=== PATIENT | male | born 1935 | race Caucasian/White ===

== ENCOUNTER 2021-11-30 12:38 | Observation (INO) | payer MEDICARE, OTHER ==
[~2021-11-30] VITALS: Ht 182.9 cm; Wt 92.2 kg
--- NOTE | 2021-11-30 12:58 | PHYS DOC ---
Past History Past Medical History: A-Fib, CVA, Dementia, High Cholesterol Additional Past Medical Histor: osteoporosis, back pain, compression fx L3-4 (ELDA LINDSEY APRN) Additional Past Surgical Histo: unk (ELDA LINDSEY APRN) Smoking: Non-smoker Alcohol Use: None Drug Use: None (ELDA LINDSEY APRN) General Adult EDM: Chief Complaint: BACK PAIN OR INJURY HPI: HPI: Patient is a 86-year-old male that presents today via [facility] with back pain. Patient resides at [facility], EMS was called by the daughter who states that the patient is complaining of upper left back pain, patient does have a history of dementia and the daughter says that she does not believe the patient has sustained a fall. Patient states that his back hurts he is unable to say how long but daughter states is been approximately 1 week. There is a Lidoderm patch on the left upper back area that was placed by the daughter, no acetaminophen or any other pain medications has been given at this time. Patient is on anticoagulation therapy due to atrial fibrillation. Patient normally uses a wheelchair to get around, he does not ambulate on a regular basis. (ELDA LINDSEY APRN) Review of Systems: Review of Systems: Constitutional: Denies fever or chills Eyes: Denies change in visual acuity HENT: Denies nasal congestion or sore throat Respiratory: Denies cough or shortness of breath Cardiovascular: Denies chest pain or edema GI: Denies abdominal pain, nausea, vomiting, bloody stools or diarrhea : Denies dysuria Musculoskeletal: Back pain Integument: Denies rash Neurologic: Denies headache, focal weakness or sensory changes Endocrine: Denies polyuria or polydipsia Lymphatic: Denies swollen glands Psychiatric: Denies depression or anxiety (ELDA LINDSEY APRN) Allergies: Allergies: Allergies Coded Allergies Type Severity Reaction Last Updated Verified No Known Drug Allergies 11/30/21 No (ELDA LINDSEY APRN) Physical Exam: PE: Constitutional: Well developed, well nourished, no acute distress, non-toxic appearance. [] HENT: Normocephalic, atraumatic, bilateral external ears normal, oropharynx moist, no oral exudates, nose normal. [] Eyes: PERRLA, EOMI, conjunctiva normal, no discharge. [] Neck: Normal range of motion, no tenderness, supple, no stridor. [] Cardiovascular:Heart rate regular rhythm, no murmur [] Lungs & Thorax: Bilateral breath sounds clear to auscultation, no increased work of breathing noted Abdomen: Bowel sounds normal, soft, no tenderness, no masses, no pulsatile masses. [] Skin: Healing ecchymotic area noted over the left flank area near the iliac crest, no crepitus noted with palpation Back: Palpation of the chest notes upper left back area is painful, also patient has low back pain along the SI joints with palpation, Extremities: No tenderness, no cyanosis, no clubbing, ROM intact, neurovascular is intact distal to the injury, pedal pulse is 2+ Neurologic: Alert and oriented X 1, which is his normal mental status Psychologic: Affect normal, judgement abnormal, mood normal. [] (ELDA LINDSEY APRN) Current Patient Data: Labs: Laboratory Tests Test 11/30/21 13:01 11/30/21 13:35 White Blood Count 6.1 x10^3/uL Red Blood Count 4.04 x10^6/uL Hemoglobin 12.4 g/dL Hematocrit 37.3 % Mean Corpuscular Volume 92 fL Mean Corpuscular Hemoglobin 31 pg Mean Corpuscular Hemoglobin Concent 33 g/dL Red Cell Distribution Width 14.9 % Platelet Count 121 x10^3/uL Neutrophils (%) (Auto) 56 % Lymphocytes (%) (Auto) 31 % Monocytes (%) (Auto) 10 % Eosinophils (%) (Auto) 2 % Basophils (%) (Auto) 0 % Neutrophils # (Auto) 3.4 x10^3uL Lymphocytes # (Auto) 1.9 x10^3/uL Monocytes # (Auto) 0.6 x10^3/uL Eosinophils # (Auto) 0.1 x10^3/uL Basophils # (Auto) 0.0 x10^3/uL Sodium Level 139 mmol/L Potassium Level 4.0 mmol/L Chloride Level 105 mmol/L Carbon Dioxide Level 27 mmol/L Anion Gap 7 Blood Urea Nitrogen 13 mg/dL Creatinine 0.7 mg/dL Estimated GFR (Cockcroft-Gault) 106.7 BUN/Creatinine Ratio 19 Glucose Level 103 mg/dL Calcium Level 8.2 mg/dL Total Bilirubin 1.7 mg/dL Aspartate Amino Transf (AST/SGOT) 20 U/L Alanine Aminotransferase (ALT/SGPT) 21 U/L Alkaline Phosphatase 104 U/L Troponin I High Sensitivity 12 ng/L Total Protein 6.5 g/dL Albumin 2.9 g/dL Albumin/Globulin Ratio 0.8 Urine Collection Type Clean catch Urine Color Yellow Urine Clarity Clear Urine pH 7.0 Urine Specific Bethany 1.020 Urine Protein Neg Urine Glucose (UA) Neg mg/dL Urine Ketones (Stick) Neg mg/dL Urine Blood Trace Urine Nitrite Neg Urine Bilirubin Neg Urine Urobilinogen Dipstick 1.0 mg/dL Urine Leukocyte Esterase Neg Urine RBC Occ /HPF Urine WBC 0 /HPF Urine Squamous Epithelial Cells None /LPF Urine Bacteria 0 /HPF Current Medications Medications (Trade) Dose Ordered Sig/Ricardo Route PRN Reason Start Time Stop Time Status Last Admin Dose Admin Iohexol (Omnipaque 300 Mg/ml) 75 ml 1X ONCE IV 11/30/21 13:00 11/30/21 13:01 DC 11/30/21 13:00 Info (Do NOT chart on this entry -- for MONITORING) 1 each PRN DAILY PRN MC SEE COMMENTS 11/30/21 13:00 12/02/21 12:59 Vital Signs: Vital Signs Date Time Temp Pulse Resp B/P (MAP) Pulse Ox O2 Delivery O2 Flow Rate FiO2 11/30/21 16:40 58 16 136/68 (90) 97 Room Air 11/30/21 16:18 57 16 150/81 (104) 98 Room Air 11/30/21 15:18 56 18 139/71 (93) 97 Room Air 11/30/21 14:18 54 18 133/63 (86) 96 Room Air 11/30/21 13:48 56 16 141/70 (93) 97 Room Air 11/30/21 13:16 60 18 133/67 (89) 98 Room Air 11/30/21 12:40 98.0 57 18 138/64 (88) 95 Room Air Vital Signs Date Time Temp Pulse Resp B/P (MAP) Pulse Ox O2 Delivery O2 Flow Rate FiO2 11/30/21 12:40 98.0 57 18 138/64 (88) 95 Room Air (ELDA LINDSEY APRN) EKG: EKG: EKG done at [address] Macedo at 1312 atrial fib at a rate of 52 no ectopy QTc is 428 ms no STEMI [] (ELDA LINDSEY APRN) Radiology/Procedures: Radiology/Procedures: REASON: back pain with possible fall recently, unwitnessed PROCEDURE: CT CHEST ABD PELVIS W/CONTRAST Study: CT chest, abdomen and pelvis with contrast INDICATION: Back pain. Possible recent unwitnessed fall. COMPARISON: None. TECHNIQUE: Helical CT imaging performed of the chest, abdomen and pelvis after the intravenous administration of 75 cc Omnipaque 300. Coronal and sagittal reformats were obtained. One or more of the following individualized dose reduction techniques were utilized for this examination: 1. Automated exposure control 2. Adjustment of the mA and/or kV according to patient size 3. Use of iterative reconstruction technique. FINDINGS: CT Chest: There is multifocal calcified and noncalcified atheromatous plaque to include trivessel coronary artery involvement. Aortic valve and annular mineralization. Mitral annular mineralization. Enlargement of the heart. No dissection or aneurysm of the thoracic aorta which is mildly tortuous. Mild left subclavian artery stenosis. Mild dilatation of the main pulmonary artery. Heterogeneous left thyroid nodule with small calcifications. The nodule measures up to 2.2 cm. Adjacent smaller nodule measures under a centimeter or. Better no axillary adenopathy. Several mildly prominent mediastinal and hilar lymph nodes. No pericardial effusion. Unremarkable esophagus. Small right larger than left pleural effusions. No pneumothorax. Atelectasis and interstitial edema. Left apical nodule on image 18 series 4 measuring 4 mm. Right lower lobe nodule medially on image 57 series 4 measuring 8 mm. Close evaluation of the lungs is hindered by respiratory motion. No significant nodule seen elsewhere. Scattered granulomas. No large body wall hematoma. Osteopenia no displaced rib fracture. Multilevel spondylosis. Ventral wedging at T2. Superior endplate height loss at T4. Diffuse idiopathic skeletal hyperostosis. No apparent fracture through bridging osteophyte. CT Abdomen/Pelvis: Undulating hepatic margins could indicate a degree of cirrhosis region of increased density along the inner margin of the right hepatic lobe on image 24 series 5 adjacent to the adrenal gland but this does not appear to represent a nodule/mass. Layering gallstones/sludge. No findings of acute cholecystitis. Nondilated biliary tree. Unremarkable pancreas and spleen. Calcification associated with the right adrenal gland. Unremarkable left adrenal gland. Bilateral renal cystic foci noting that some are too small to characterize. No hydronephrosis. Circumferential wall thickening of the urinary bladder in the setting of prostatomegaly. The prostate is measured at 5 cm transverse. Query chronic bladder outlet obstruction. Constipated state with rectal distention with well-formed stool. Tortuous colon. Mobile cecum. No pathologic dilatation of small bowel. No appreciable abnormality of the gastric wall. Multifocal calcified and noncalcified atheromatous plaque. Aortobiiliac tortuosity. No significant lymph node enlargement. No free fluid or pneumoperitoneum. Scattered muscular fatty infiltration. No large body wall hematoma. No displaced fracture throughout the pelvis. Augmented L3 and L4 compression deformities. Subtle acute fracture at the superior/right lateral aspect of L5, image 62 series 8. Intact posterior elements IMPRESSION: CT Chest: 1. No sequela of acute trauma seen throughout the chest. Taking into consideration osteopenia no acute fracture is seen to involve the thoracic spine, lower cervical spine or ribs. 2. Enlarged heart and findings of congestive heart failure/volume overload with interstitial edema and small right larger than left pleural effusions. 3. Right lower lobe pulmonary nodule measuring 8mm. No comparison studies are available to determine stability. Per Fleischner guidelines, follow-up is recommended in 6-12 months unless outside imaging can be obtained to confirm stability. 4. Prominent left thyroid lobe nodule with small calcifications measuring up to 2.2 cm. This would meet size criteria for eventual outpatient/nonemergent thyroid ultrasound if deemed clinically necessary given patient age. 5. Multiple chronic observations to include calcific coronary artery disease. CT Abdomen/Pelvis: 1. Very subtle fracture at the superior/right lateral aspect of the L5 vertebral body. No additional fracture is identified. No sequela trauma within the abdomen or pelvis. 2. Multiple chronic findings outlined in the body of the report. Constipated state with rectal distention with well-formed stool. Electronically signed by: MIO TREJO MD (11/30/2021 2:25 PM) [id number] DICTATED AND SIGNED BY: MIO TREJO MD DATE: 11/30/21 1408 CC: ELDA LINDSEY APRN; SHEEBA REGALADO MD ~MTH0 0[] (ELDA LINDSEY APRN) Heart Score: C/O Chest Pain: N/A Risk Factors: Risk Factors: DM, Current or recent (<one month) smoker, HTN, HLP, family history of CAD, obesity. Risk Scores: Score 0 - 3: 2.5% MACE over next 6 weeks - Discharge Home Score 4 - 6: 20.3% MACE over next 6 weeks - Admit for Clinical Observation Score 7 - 10: 72.7% MACE over next 6 weeks - Early Invasive Strategies (ELDA LINDSEY APRN) Course & Med Decision Making: Course & Med Decision Making Pertinent Labs and Imaging studies reviewed. (See chart for details) 1445 spoke to daughter who is at bedside she states that the patient was moved here in May 2021 from [place], him and his has been residing at living [facility] and caring for themselves. Daughter states patient prior to Thursday of this week was able to get around in his apartment area with his wheelchair, and do simple transfers such as to the toilet and to the bed into his chair, but since Thursday he has been able to do so just due to the left scapular pain that he has been experiencing. I did review radiological and laboratory results with patient, after speaking with daughter our main concern is how patient will care for himself in the assisted living facility since there is not help to help with ADLs. I did speak to Dr. Lua and he is agreeable to admitting the patient for observation so that the patient can be evaluated for possible usp facility. (ELDA LINDSEY APRN) Dragon Disclaimer: Dragon Disclaimer: This electronic medical record was generated, in whole or in part, using a voice recognition dictation system. (ELDA LINDSEY APRN) Attending Co-Sign The patient was seen and interviewed as well as examined at the bedside. The chart was reviewed. The case was discussed. Agree with the plan of care. (ANTHONY MACEDO DO) Departure Departure: Impression: Primary Impression: Back pain Qualified Codes: M54.89 - Other dorsalgia Additional Impressions: Failure to thrive in adult Atrial fibrillation Qualified Codes: I48.20 - Chronic atrial fibrillation, unspecified Anticoagulant long-term use History of stroke with residual effects Disposition: ADMITTED INPATIENT Admitting Physician: Ian Lua (ELDA LINDSEY APRN) Condition: STABLE Referrals: SHEEBA REGALADO MD (PCP) ELDA LINDSEY APRN Nov 30, 2021 12:58 ANTHONY MACEDO DO Dec 02, 2021 10:52
[2021-11-30] MEDS ORDERED: IOHEXOL 300 MG/ML 75 ML VIAL. IV ONE (13:00)
[2021-11-30] MEDS ORDERED: CONTRAST GIVEN. MC PRN (13:00)
[2021-11-30 13:16] LABS: BASO % 0 % (0-3); EOS # 0.1 x10^3/uL (0.0-0.7); EOS % 2 % (0-3); HEMATOCRIT 37.3 % (39.0-53.0); HEMOGLOBIN 12.4 g/dL (13.0-17.5); LYMPH # 1.9 x10^3/uL (1.0-4.8); LYMPH % 31 % (24-48); MEAN CORPUSCULAR HEMOGLOBIN 31 pg (25-35); MEAN CORPUSCULAR HGB CONC 33 g/dL (31-37); MEAN CORPUSCULAR VOLUME 92 fL (79-100); MONO # 0.6 x10^3/uL (0.0-1.1); MONO % 10 % (0-9); NEUT # 3.4 x10^3uL (1.8-7.7); NEUT % 56 % (31-73); PLATELET COUNT 121 x10^3/uL (140-400); RED BLOOD COUNT 4.04 x10^6/uL (4.30-5.70); RED CELL DISTRIBUTION WIDTH 14.9 % (11.5-14.5); WHITE BLOOD COUNT 6.1 x10^3/uL (4.0-11.0)
[2021-11-30 13:28] LABS: ALBUMIN 2.9 g/dL (3.4-5.0); ALBUMIN/GLOBULIN RATIO 0.8 (1.0-1.7); CREATININE 0.7 mg/dL (0.7-1.3); GFR 106.7; TOTAL BILIRUBIN 1.7 mg/dL (0.2-1.0); TOTAL PROTEIN 6.5 g/dL (6.4-8.2)
[2021-11-30 13:29] LABS: CALCIUM 8.2 mg/dL (8.5-10.1)
--- NOTE | 2021-11-30 13:32 | EKG ---
[address] [address] Test Date: 2021-11-30 Test Time: 13:17:41 Pat Name: MEYL FREEMAN Department: Room: Gender: M Race Starter: YINA : 1935 Requested By: ELDA LINDSEY Order Number: [id number] Reading MD: Nagi Rojas MD Measurements Intervals Midway Rate: 56 P: MI: QRS: 32 QRSD: 88 T: -2 QT: 460 QTc: 447 Interpretive Statements ATRIAL FIBRILLATION NON-SPECIFIC ST/T CHANGES Electronically Signed On 12-02-2021 10:14:29 SPEEDER HAND by Nagi Rojas MD
[2021-11-30 14:27] LABS: BACTERIA,URINE 0 /HPF (0-FEW); CLARITY,URINE CLEAR; COLOR,URINE YELLOW; GLUCOSE,URINE NEG (NEG); NITRITE,URINE NEG (NEG); RBC,URINE OCC /HPF (0-2); WBC,URINE 0 /HPF (0-4)
--- NOTE | 2021-11-30 14:27 | RAD ---
Study: CT chest, abdomen and pelvis with contrast INDICATION: Back pain. Possible recent unwitnessed fall. COMPARISON: None. TECHNIQUE: Helical CT imaging performed of the chest, abdomen and pelvis after the intravenous admini stration of 75 cc Omnipaque 300. Coronal and sagittal reformats were obtained. One or more of the following individualized dose reduction techniques were utilized for this examinat ion: 1. Automated exposure control 2. Adjustment of the mA and/or kV according to patient size 3. Use of iterative reconstruction technique. FINDINGS: CT Chest: There is multifocal calcified and noncalcified atheromatous plaque to include trivessel coronary blu ry involvement. Aortic valve and annular mineralization. Mitral annular mineralization. Enlargement o f the heart. No dissection or aneurysm of the thoracic aorta which is mildly tortuous. Mild left subc lavian artery stenosis. Mild dilatation of the main pulmonary artery. Heterogeneous left thyroid nodule with small calcifications. The nodule measures up to 2.2 cm. Adjace nt smaller nodule measures under a centimeter or. Better no axillary adenopathy. Several mildly promi nent mediastinal and hilar lymph nodes. No pericardial effusion. Unremarkable esophagus. Small right larger than left pleural effusions. No pneumothorax. Atelectasis and interstitial edema. Left apical nodule on image 18 series 4 measuring 4 mm. Right lower lobe nodule medially on image 57 series 4 measuring 8 mm. Close evaluation of the lungs is hindered by respiratory motion. No signific ant nodule seen elsewhere. Scattered granulomas. No large body wall hematoma. Osteopenia no displaced rib fracture. Multilevel spondylosis. Ventral we dging at T2. Superior endplate height loss at T4. Diffuse idiopathic skeletal hyperostosis. No appare nt fracture through bridging osteophyte. CT Abdomen/Pelvis: Undulating hepatic margins could indicate a degree of cirrhosis region of increased density along the inner margin of the right hepatic lobe on image 24 series 5 adjacent to the adrenal gland but this d oes not appear to represent a nodule/mass. Layering gallstones/sludge. No findings of acute cholecyst itis. Nondilated biliary tree. Unremarkable pancreas and spleen. Calcification associated with the ri ght adrenal gland. Unremarkable left adrenal gland. Bilateral renal cystic foci noting that some are too small to characterize. No hydronephrosis. Circumferential wall thickening of the urinary bladder in the setting of prostatomegaly. The prostate is measured at 5 cm transverse. Query chronic bladder outlet obstruction. Constipated state with rectal distention with well-formed stool. Tortuous colon. Mobile cecum. No pat hologic dilatation of small bowel. No appreciable abnormality of the gastric wall. Multifocal calcified and noncalcified atheromatous plaque. Aortobiiliac tortuosity. No significant ly mph node enlargement. No free fluid or pneumoperitoneum. Scattered muscular fatty infiltration. No large body wall hematoma. No displaced fracture throughout the pelvis. Augmented L3 and L4 compression deformities. Subtle acut e fracture at the superior/right lateral aspect of L5, image 62 series 8. Intact posterior elements IMPRESSION: CT Chest: 1. No sequela of acute trauma seen throughout the chest. Taking into consideration osteopenia no acu te fracture is seen to involve the thoracic spine, lower cervical spine or ribs. 2. Enlarged heart and findings of congestive heart failure/volume overload with interstitial edema a nd small right larger than left pleural effusions. 3. Right lower lobe pulmonary nodule measuring 8mm. No comparison studies are available to determine stability. Per Fleischner guidelines, follow-up is recommended in 6-12 months unless outside imaging can be obtained to confirm stability. 4. Prominent left thyroid lobe nodule with small calcifications measuring up to 2.2 cm. This would m eet size criteria for eventual outpatient/nonemergent thyroid ultrasound if deemed clinically necessa ry given patient age. 5. Multiple chronic observations to include calcific coronary artery disease. CT Abdomen/Pelvis: 1. Very subtle fracture at the superior/right lateral aspect of the L5 vertebral body. No additional fracture is identified. No sequela trauma within the abdomen or pelvis. 2. Multiple chronic findings outlined in the body of the report. Constipated state with rectal diste ntion with well-formed stool. Electronically signed by: MIO TREJO MD (11/30/2021 2:25 PM) [id number]
[2021-11-30] MEDS ORDERED: ACETAMINOPHEN 500 MG TABLET PO PRN (15:15)
[2021-11-30] MEDS ORDERED: CYCLOBENZAPRINE 10 MG TABLET. PO ONE (15:30)
[2021-11-30 17:30] VITALS: BP 150/79
[2021-11-30] MEDS ORDERED: KETOROLAC 30 MG/ML VIAL. IM ONE (17:30)
--- NOTE | 2021-11-30 19:24 | NUR ---
PT ARRIVED TO THE UNIT AT APPROX 173 VIA GURNEY FROM EMS. PT SITUATED IN ROOM AND DR CAR NOTIFIED OF PTS ARRIVAL WELL SEVERE PAIN. ORDER RECEIVED. SPOKE TO THE PTS DAUGHTER/DPOA AND OBTAINED HISTORY FROM THE DAUGHTER MAINLY. PT FROM [facility] WHERE HE CURRENTLY RESIDES WITH HIS .
[2021-11-30] MEDS ORDERED: MAGN400O7 PO (19:41)
[2021-11-30] MEDS ORDERED: ACET325T21 PO (19:41)
[2021-11-30] MEDS ORDERED: ATOR40TA59 PO (19:41)
[2021-11-30] MEDS ORDERED: UBID100C26 PO (19:41)
[2021-11-30] MEDS ORDERED: MULT-245 PO (19:41)
[2021-11-30] MEDS ORDERED: CALA180L4 TP (19:41)
[2021-11-30] MEDS ORDERED: TAMS0.4C97 PO (19:41)
[2021-11-30] MEDS ORDERED: POTA10TA12 PO (19:41)
[2021-11-30] MEDS ORDERED: SENN1TAB62 PO (19:41)
[2021-11-30] MEDS ORDERED: APIX2.5T PO (19:41)
[2021-11-30] MEDS ORDERED: ALEN70TA3 PO (19:41)
[2021-11-30] MEDS ORDERED: FURO-68 PO (19:41)
[2021-11-30] MEDS ORDERED: TAMSULOSIN 0.4 MG CAP.ER.24H. PO SCH (21:30)
[2021-11-30] MEDS ORDERED: MAGNESIUM HYDROXIDE 2,400 MG/30 ML ORAL.SUSP. PO PRN (21:30)
[2021-11-30] MEDS ORDERED: ATORVASTATIN CALCIUM 20 MG TABLET PO SCH (21:30)
[2021-12-01 00:12] VITALS: BP 147/80
[2021-12-01 05:25] VITALS: BP 139/78
--- NOTE | 2021-12-01 06:15 | NUR ---
Pt awake in bed eating dinner with daughter at bedside at change of shift. Pt is A&Ox2-3, hx of dementia. Pt is very pleasant with assessment and cares. Dr Lua called for admit orders and restart of home medications. Pt took HS medications whole without difficulty. Pt incont of urine x1, Calmoseptine applied. Pt TQ2 with pillow. Pt slept great during the night. Denies pain unless he moves. Bed alarm on.
[2021-12-01] MEDS ORDERED: POTASSIUM CHLORIDE 10 MEQ TABLET.ER. PO SCH (08:00)
[2021-12-01] MEDS ORDERED: FUROSEMIDE 40 MG TABLET PO SCH (09:00)
[2021-12-01] MEDS ORDERED: MULTIVITAMIN with MINERAL TABLET. PO SCH (09:00)
--- NOTE | 2021-12-01 09:27 | HP ---
DATE OF SERVICE: 12/01/2021 ADMIT DATE: 11/30/2021 ATTENDING PHYSICIAN: Dr. Lua. CHIEF COMPLAINT: Back pain. HISTORY OF PRESENT ILLNESS: The patient is an 86-year-old gentleman, recently moved here in the last year from [place]. His youngest daughter lives here in town. He and his are living at [facility]. He had fallen recently. The main complaint is severe low back pain. He is unable to get up. He has profound dementia and does not remember what happened. He was admitted, given pain meds and bed rest. By the time I saw him the next morning, he was doing better. He was back to his baseline. He had a Lidoderm patch. X-rays showed a very slight mild compression fracture. It is not surgical. He is on chronic anticoagulation due to atrial fibrillation. 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 ALLERGIES: He has no known drug allergies. CURRENT MEDICATIONS: Include the following: He was on scheduled Eliquis, Lipitor, furosemide, potassium, Flomax, senna, CoQ10, and Fosamax. SOCIAL HISTORY: Nonsmoker, nondrinker. FAMILY HISTORY: Unobtainable. REVIEW OF SYSTEMS: He is confused and otherwise unobtainable. PHYSICAL EXAMINATION: GENERAL: When I saw him, this is a pleasant elderly gentleman. VITAL SIGNS: Initial vital signs showed a blood pressure of 139/78, pulse is 60 and regular. He was afebrile, oxygen saturation 93% on room air. HEENT: Head is without trauma. Pupils are reactive. Sclerae nonicteric. The oropharynx is clear. NECK: Supple, no bruits. LUNGS: Clear. CARDIOVASCULAR: Regular heart tones. ABDOMEN: Soft. EXTREMITIES: Without edema. NEUROLOGIC: Pleasantly confused. PERTINENT LABORATORY STUDIES: Hemoglobin is 12.4 g, white count 6100. Electrolytes within normal range. Nonfasting blood sugar 103. CT chest, abdomen and pelvis showed various nonclinical abnormality. He has a slight compression fracture that is evident that is acute. ASSESSMENT: 1. An 86-year-old gentleman with acute fall and slight compression fracture. 2. Acute lumbar strain. 3. Severe incapacitating pain. 4. Underlying dementia. 5. Hyperlipidemia. PLAN: 1. Observation status. 2. Pain control. 3. Bed rest. 4. Diet as tolerated. 5. Continue home meds. NEO DR: Mickie TID: [id number]
--- NOTE | 2021-12-01 10:06 | NUR ---
Pt up this morning at bedside eating with min assist. pt denies pain at this time.Dr Lua spoke to the drt in length this shift and the pt will return to assisted living at [facility]. Pts daughter will provide transport back to the facility. facility notified of return and updates given as well as script sent. Spoke to Bri at [facility].
--- NOTE | 2021-12-01 11:40 | DS ---
DATE OF DISCHARGE: 12/01/2021 ATTENDING PHYSICIAN: Dr. Lua. FINAL DISCHARGE DIAGNOSES: 1. An 86-year-old gentleman with intractable low back pain. 2. Recent fall with slight nondisplaced compression fracture of L5 vertebral body. 3. Severe incapacitating pain, resolved. 4. Underlying dementia. 5. History of stroke. 6. Paroxysmal atrial fibrillation. 7. Chronic anticoagulation. HISTORY AND PHYSICAL: The patient is a pleasant 86-year-old gentleman with multiple medical issues. He had fallen at the assisted living facility, experienced severe low back strain. Workup in the ED showed no acute surgical issues. He had a slight compression fracture, nondisplaced at the L5 vertebral body. He was admitted for further pain management. PHYSICAL EXAMINATION: Please see the dictated note. PERTINENT LABORATORY AND X-RAY STUDIES: Admission hemoglobin was 12.4 g/dL, white count 6100. Electrolytes, BUN and creatinine, blood sugar all within normal range. Serology negative for coronavirus. COURSE IN THE HOSPITAL: He was admitted, given pain meds. He did better. Diet was advanced. By the time I saw him the next day, his spasms had resolved. He was pleasantly confused. I had a very long discussion with the daughter and the power of civil litigation attorney. She is in the process of figuring out If they can continue staying in their assisted living facility or whether they need a higher level of care at [facility]. The limiting factor will be cost. In any event, on the second hospital day, he was discharged home. I made no changes on his medications. He will continue to schedule Eliquis, atorvastatin, Lasix, magnesium, potassium, senna, Flomax, and coenzyme Q10, I did write a small script for Flexeril 10 mg 1 p.o. b.i.d. as needed for back spasm. He is a full code at this time. I discussed the code status and the daughter will discuss with the rest of the family. The patient was then discharged from our hospital in stable condition with explicit drug and followup care. LARS ROGERS: Mickie TID: [id number]
== END 2021-12-01 12:17 ==
LOC: ER 12:38 → INTOOBSV 15:35 → ER HOLD 15:35 → 1 SOUTH 17:08
PROVIDERS: ADMIT Hospitalist; ATTEND Hospitalist
DX: U07.1 COVID-19 (principal); M48.56XA Collapsed vertebra, not elsewhere classified, lumbar region, initial encounter for fracture; S39.012A Strain of muscle, fascia and tendon of lower back, initial encounter; F03.90 Unspecified dementia, unspecified severity, without behavioral disturbance, psychotic disturbance, mood disturbance, and anxiety; R62.7 Adult failure to thrive; E78.5 Hyperlipidemia, unspecified; E04.1 Nontoxic single thyroid nodule; E78.00 Pure hypercholesterolemia, unspecified; F01.50 Vascular dementia, unspecified severity, without behavioral disturbance, psychotic disturbance, mood disturbance, and anxiety; I25.10 Atherosclerotic heart disease of native coronary artery without angina pectoris; I48.0 Paroxysmal atrial fibrillation; I48.20 Chronic atrial fibrillation, unspecified; I11.0 Hypertensive heart disease with heart failure; I50.9 Heart failure, unspecified; K59.00 Constipation, unspecified; I25.2 Old myocardial infarction; M81.0 Age-related osteoporosis without current pathological fracture; Z79.899 Other long term (current) drug therapy; Z98.890 Other specified postprocedural states; Z86.73 Personal history of transient ischemic attack (TIA), and cerebral infarction without residual deficits; Z79.01 Long term (current) use of anticoagulants; Z68.27 Body mass index [BMI] 27.0-27.9, adult; W19.XXXA Unspecified fall, initial encounter; Y92.89 Other specified places as the place of occurrence of the external cause; Y93.89 Activity, other specified; Y99.8 Other external cause status
CPT/HCPCS: 36415; 71260; 74177; 80053; 81001; 84484; 85025; 87426; 93005; 96372; 97162; 97530; 99285; G0378; J1885; Q9967; U0003; G0379